=== PATIENT | female | born 1955 | race Caucasian/White ===

== ENCOUNTER 2017-12-02 14:09 | Outpatient (CLI) | payer SELFPAY ==
--- NOTE | 2017-12-02 14:40 | RAD ---
CHEST TWO VIEWS: History: Bronchitis. Cough x 2 months. Comparison: None. FINDINGS: Normal cardiac silhouette. The pulmonary vessels and hilum are normal. Costophrenic angles are clear. No masses or consolidation. No pneumothorax. No osseous abnormalities. IMPRESSION: No acute cardiopulmonary process. POS: [facility]
== END 2017-12-02 14:10 | disposition home or self-care (01) ==
LOC: SCSRAD 14:09
PROVIDERS: ATTEND Family Medicine
DX: J40 Bronchitis, not specified as acute or chronic (principal)
CPT/HCPCS: 71046

== ENCOUNTER 2018-05-06 11:34 | Outpatient (CLI) | payer SELFPAY ==
--- NOTE | 2018-05-06 12:39 | RAD ---
CERVICAL SPINE 4 VIEWS: INDICATION: Neck pain and stiffness. FINDINGS: Moderate degenerative changes of the cervical spine noted. There is straightening of the lordotic cu rvature. Loss of disk space at all levels. Moderate anterior osteophytes and posterior spondylytic changes are seen, most prominent at C3-4, C4-5, and C5-6 levels. No compression deformity. Alignmen t appears preserved. IMPRESSION: Moderate degenerative changes of cervical spine. POS: [facility]
== END 2018-05-06 11:35 | disposition home or self-care (01) ==
LOC: SCSRAD 11:34
PROVIDERS: ATTEND Nurse Practitioner Family
DX: S16.1XXD Strain of muscle, fascia and tendon at neck level, subsequent encounter (principal); M47.892 Other spondylosis, cervical region
CPT/HCPCS: 72040

== ENCOUNTER 2019-02-17 13:45 | Outpatient (CLI) | payer MEDICARE ==
--- NOTE | 2019-02-17 14:52 | MMO ---
Bilateral MAMMO Bilat Screen [facility]. CLINICAL HISTORY: Patient is 63 years old and is seen for screening. The patient has the following family history of breast cancer: maternal aunt. The patient has a history of cervical cancer at age 26. The patient has a history of bilateral Explantation in 2014, bilateral Implants in 2014 and bilateral Implants in 2004. VIEWS: The views performed were: bilateral craniocaudal; bilateral mediolateral oblique; and bilateral Implant displaced with tomosynthesis. FILMS COMPARED: The present examination has been compared to prior imaging studies performed at [facility] on 06/18/2005 and 03/07/2016. MAMMOGRAM FINDINGS: There are scattered fibroglandular densities. There are no suspicious masses, suspicious calcifications, or new areas of architectural distortion. Normal implants are present.. IMPRESSION: THERE IS NO MAMMOGRAPHIC EVIDENCE OF MALIGNANCY. A ROUTINE FOLLOW-UP MAMMOGRAM IN 1 YEAR IS RECOMMENDED. THE RESULTS OF THIS EXAM WERE SENT TO THE PATIENT. ACR BI-RADS Category 1 - Negative MAMMOGRAPHY NOTE: 1. A negative mammogram report should not delay a biopsy if a dominant of clinically suspicious mass is present. 2. Approximately 10% to 15% of breast cancers are not detected by mammography. 3. Adenosis and dense breasts may obscure an underlying neoplasm.
== END 2019-02-17 13:46 | disposition home or self-care (01) ==
LOC: BICMAMMO 13:45
PROVIDERS: ATTEND Family Medicine
DX: Z12.31 Encounter for screening mammogram for malignant neoplasm of breast (principal)
CPT/HCPCS: 77063; 77067

== ENCOUNTER 2021-10-10 10:14 | Outpatient (CLI) | payer MEDICARE | END 2021-10-10 10:15 | disposition home or self-care (01) | LOC: BICMAMMO 10:14 | PROVIDERS: ATTEND Family Medicine | DX: Z12.31 Encounter for screening mammogram for malignant neoplasm of breast (principal); Z80.3 Family history of malignant neoplasm of breast; Z98.82 Breast implant status | CPT/HCPCS: 77063; 77067 ==

== ENCOUNTER 2022-06-08 13:57 | Outpatient (CLI) | payer MEDICARE, OTHER | END 2022-06-08 13:58 | disposition home or self-care (01) | LOC: BICMAMMO 13:57 | PROVIDERS: ATTEND Family Medicine | DX: Z13.820 Encounter for screening for osteoporosis (principal); E28.39 Other primary ovarian failure; M85.851 Other specified disorders of bone density and structure, right thigh; Z78.0 Asymptomatic menopausal state | CPT/HCPCS: 77080 ==